=== PATIENT | male | born 1990 | race Caucasian/White ===

== ENCOUNTER 2016-10-20 00:03 | Emergency (ER) | payer OTHER ==
[~2016-10-20] VITALS: Ht 182.9 cm; Wt 105.1 kg
[~2016-10-20 00:03] MED LIST: NOHOMEMEDS
[2016-10-20 00:09] VITALS: BP 163/99
[2016-10-20 00:33] LABS: HEMATOCRIT 45.5 % (38.0-50.0); MCH 30.3 PG (29.0-34.0); MCHC 33.8 G/DL (30.0-36.0); MCV 89.4 FL (86-99); PLATELET COUNT 208 K/uL (156-360); RBC DIS.WIDTH-CV 12.7 % (11.8-14.6); RBC DIS.WIDTH-SD 41.4 % (39-53); RED BLOOD COUNT 5.09 M/uL (4.00-5.50); WHITE BLOOD COUNT 9.6 K/uL (4.1-10.2)
[2016-10-20 00:50] LABS: CHLORIDE 106 mEq/L (99-109); POTASSIUM 3.9 mEq/L (3.7-5.4); SODIUM 141 mEq/L (136-147)
[2016-10-20 00:51] LABS: GLUCOSE 87 mg/dL (70-99)
[2016-10-20 00:53] LABS: ANION GAP 9 MEQ/L (2-14)
[2016-10-20 00:55] LABS: GFR ESTIMATE (CALCULATED) > 59 mL/min/
[2016-10-20 00:56] LABS: UREA NITROGEN (BUN) 15 mg/dL (9-23)
[2016-10-20 01:00] LABS: TROP-I INTERPRETATION NEGATIVE; TROPONIN-I < 0.01 ng/mL (0.0-0.30)
== END 2016-10-20 02:41 | disposition home or self-care (01) ==
LOC: EME 00:03
DX: R07.89 Other chest pain (principal); M79.602 Pain in left arm; Z87.891 Personal history of nicotine dependence
CPT/HCPCS: 71020; 80048; 84484; 85027; 93005; 99281; 99284